=== PATIENT | female | born 1950 | race Caucasian/White ===

== ENCOUNTER → 2016-10-21 | Outpatient (CLI) | payer BC | LOC: MC.RAD 08:27 | DX: Z12.31 Encounter for screening mammogram for malignant neoplasm of breast (principal) ==

== ENCOUNTER → 2019-03-26 | Outpatient (CLI) | payer MEDICARE, OTHER | LOC: MC.RAD 13:17 | DX: Z12.31 Encounter for screening mammogram for malignant neoplasm of breast (principal) ==